=== PATIENT | male | born 1950 | race Caucasian/White ===

== ENCOUNTER → 2018-10-01 | Outpatient (CLI) | payer MEDICARE ==
[2018-10-01 17:04] LABS: POTASSIUM 4.4 MMOL/L (3.6-5.0)
[2018-10-01 17:05] LABS: CREATININE SERUM 1.53 MG/DL (0.60-1.30)
[2018-10-01 17:07] LABS: ALBUMIN 3.7 GM/DL (3.2-4.5); BILIRUBIN,TOTAL 0.4 MG/DL (0.1-1.0); CALCIUM 8.1 MG/DL (8.5-10.1); TOTAL PROTEIN 6.6 GM/DL (6.4-8.2)
== END ==
LOC: LAB FS 16:29
PROVIDERS: ATTEND Family Medicine
DX: L03.116 Cellulitis of left lower limb (principal); Z79.2 Long term (current) use of antibiotics
CPT/HCPCS: 36415; 80053; 82550; 86141

== ENCOUNTER → 2018-10-02 | Outpatient (CLI) | payer MEDICARE ==
[2018-10-02 16:39] LABS: HEMATOCRIT 26 % (40-54); HEMOGLOBIN 7.8 G/DL (13.3-17.7); MEAN CORPUSCULAR HEMOGLOBIN 29 PG (25-34); MEAN CORPUSCULAR HGB CONC 30 G/DL (32-36); MEAN CORPUSCULAR VOLUME 97 FL (80-99); PLATELET COUNT 307 10^3/uL (130-400); RED CELL DISTRIBUTION WIDTH 22.1 % (10.0-14.5); WHITE BLOOD COUNT 8.2 10^3/uL (4.3-11.0)
[2018-10-02 16:40] LABS: BASOPHILS % (AUTO) 1 % (0-10); EOSINOPHILS # (AUTO) 0.4 10^3/uL (0.0-0.3); EOSINOPHILS % (AUTO) 5 % (0-10); ERYTHROCYTE SEDIMENTATION RATE 41 MM/HR (0-30); LYMPHOCYTES # (AUTO) 0.7 X 10^3 (1.0-4.0); LYMPHOCYTES % (AUTO) 9 % (12-44); MEAN PLATELET VOLUME 9.9 FL (7.4-10.4); MONOCYTES # (AUTO) 0.9 X 10^3 (0.0-1.0); MONOCYTES % (AUTO) 10 % (0-12); NEUTROPHILS # (AUTO) 6.1 X 10^3 (1.8-7.8); NEUTROPHILS % (AUTO) 75 % (42-75)
== END ==
LOC: LAB FS 14:00
PROVIDERS: ATTEND Family Medicine
DX: L03.116 Cellulitis of left lower limb (principal); Z79.2 Long term (current) use of antibiotics
CPT/HCPCS: 36415; 85025; 85652